=== PATIENT | female | born 1930 | race Caucasian/White ===

== ENCOUNTER 2018-05-31 13:41 | Inpatient (IN) ==
--- NOTE | 2018-05-31 13:59 | Emergency Department Note ---
Disposition Clinical Impression: Pleural effusion, Elevated troponin CHF exacerbation Qualifiers: Heart failure type: unspecified Qualified Code(s): I50.9 - Heart failure, unspecified Fall Qualifiers: Qualified Code(s): W19.XXXA - Unspecified fall, initial encounter Disposition: Admitted As Inpatient Condition: Fair Time of Disposition: 21:32 General Adult HPI - General Stated complaint: Fall sent for testing Time Seen by Provider: 05/31/18 13:44 Source: patient, family Mode of arrival: ambulatory Limitations: no limitations Nursing Notes Reviewed: Yes Vital Signs Reviewed: Yes - History of Present Illness HPI Narrative: 88-year-old female history of congestive heart failure, hypertension, hyperlipidemia and hypothyroidism presents to the emergency department with family for multiple complaints. Patient was seen by primary care provider Dr. Vicente originally for recent fall and cough. The patient's family is at bedside and assist with the history. States that the primary care provider was concerned that she may have pneumonia versus heart failure. Patient has gained over 28 pounds. Her legs are significantly more swollen and starting to ooze. They have also noticed that she appears more yellow. She has significant amount abdominal swelling. She is also developed a cough with a green productive sputum with some associated shortness of breath and chest pain on the left. This is been ongoing for the past week. She also had a fall yesterday coming out of the shower. This was witnessed by . She sits in the shower she finished showering caught up as she was stepping out her right leg slipped and she felt back. No head injury reported. No loss of consciousness. Patient had some difficulty with getting up. Since then she has been having difficulty ambulating. She is complaining of right hip pain but does know that she has chronic pain there. She denies any back pain or neck pain. She denies any confusion. Denies any changes in her appetite. - Related Data Home Medications Medication Instructions Recorded Confirmed Aspirin [Luce Aspirin EC] 81 mg PO Q48H 05/31/18 05/31/18 Carvedilol [Coreg] 6.25 mg PO DAILY 05/31/18 05/31/18 Chlorthalidone 50 mg PO DAILY 05/31/18 05/31/18 Guaifenesin [Mucinex] 600 mg PO DAILY 05/31/18 05/31/18 Levothyroxine Sodium 75 mcg PO QAM 05/31/18 05/31/18 Allergies Allergy/AdvReac Type Severity Reaction Status Date / Time codeine Allergy Headache Verified 05/31/18 14:07 Penicillins Allergy See Verified 05/31/18 14:08 Comments All systems ED: reviewed and negative except as stated. Review of Systems: As Per HPI Constitutional: Reports: weight change. Denies: fever, chills ENT ED: Reports: congestion Cardiovascular: Reports: chest pain Respiratory: Reports: cough, dyspnea. Denies: hemoptysis Gastrointestinal: Denies: abdominal pain, nausea, vomiting, diarrhea Genitourinary: Denies: dysuria Musculoskeletal: Reports: arthralgia. Denies: back pain Integumentary: Denies: rash, abrasion Neurological: Denies: headache Past Medical History - Past Medical History Attestation: Yes The following information was validated with the patient. Source: patient Physical Exam - General Limitations: no limitations General appearance: alert, in no apparent distress - Head Head exam: atraumatic, normocephalic, normal inspection - Eye Eye exam: Present: normal appearance, PERRL, EOMI. Absent: scleral icterus - ENT ENT exam: normal exam, normal oropharynx, mucous membranes moist - Neck Neck exam: Present: normal inspection, full ROM, trachea midline - Chest Chest inspection: Present: normal inspection, symmetric chest wall rise - Respiratory Respiratory exam: Present: normal lung sounds bilaterally, wheezes. Absent: respiratory distress - Expanded Respiratory Exam Location: wheezes: Lower, rales: Lower, decreased breath sounds: Lower - Cardiovascular Cardiovascular exam: Present: normal rhythm, tachycardia, normal heart sounds, other (Unable to palpate distal pulses in lower extremities given the significant swelling) - Abdominal Exam Abdominal exam: Present: soft (Obese), Non-Tender, ascites, other (Pitting edema). Absent: tenderness, distention, guarding, rebound, rigidity - Extremities Exam Extremities exam: Present: normal inspection, full ROM, pedal edema (Significant bilateral with oozing). Absent: tenderness, calf tenderness - Expanded Lower Extremity Exam Hip/Pelvis exam: Present: full ROM, tenderness (Right), pelvis stable Upper leg exam: Present: normal inspection, full ROM Knee exam: Present: normal inspection, full ROM Lower leg exam: Present: full ROM, swelling Ankle exam: Present: full ROM, swelling Foot/toe exam: Present: normal inspection, full ROM Neurovascular/Tendon exam: Absent: motor deficit, sensory deficit, tendon d eficit - Neurological Exam Neurological exam: Present: alert, oriented X3 - Psychiatric Psychiatric exam: Present: normal affect, normal mood - Skin Skin exam: Present: warm, dry, intact, other (Yellowish tinge to face and upper trunk). Absent: rash, cyanosis, diaphoresis Course Course Narrative: Patient presents with concern for pneumonia versus heart failure. Patient has significant swelling to lower extremity. She does not appear in any significant respiratory distress. She reports a cough for several days with left-sided chest pain along the rib. No trauma to the area. She did recently fall but denies any head injury. On evaluation patient appears in no acute distress. Patient appears mildly jaundice in the face. Her sclera is not icteric. She is awake alert and oriented to person place and time. She has some tenderness to the right hip. She states she is normally amatory but since the fall she has been weaker than usual. She had multiple episodes when she use a commode and was unable to stand and get up from it. She denies any back pain. She moves all for extremities without any difficulty. Logrolling does not elicit any significant discomfort. At this time will evaluate for possible heart failure including a BNP. Chest x-ray performed. Will also obtain a CT of the head given the fall. Patient is tachycardic Ed.D. dimer will be added. She is slightly hypotensive and will cautiously fluid hydration her given her fluid overload state. - Reevaluation(s) Reevaluation #1: D dimer is significantly elevated. A CT scan of the chest will be added. Her hip films show possible fracture to the right intertrochanteric area. Recommendation of a CT scan for further evaluation. Given the swelling to her abdomen will evaluate with CT abdomen and pelvis as well. Review of her labs is not show anemia. There is no significant leukocytosis. Her troponin is elevated 0.07. EKG did not reveal any ischemic findings. Her BNP is elevated and was suggest that she is more and heart failure. Her chest x-ray shows bilateral pleural effusion. She does not take diuretics at baseline. Her bilirubin is not significantly elevated to suggest acute liver failure at this time. Patient will require admission. Family is in agreement with this plan. Time: 17:03 Reevaluation #2: CT scan did not reveal fracture of the pelvis. Patient informed of additional findings which included a staghorn kidney stone that they have been aware of for the past several years. There is also no femoral fracture. There is liver cirrhosis that the patient was unaware of. There is also findings concerning for chronic pulmonary embolism with bilateral pleural effusion. She continues to be in no acute respiratory distress. Patient will be admitted for her heart failure given her weakness and fall. - Consultations Consultation #1: Spoke with on-call hospitalist ej Ness to admit for dyspnea, CHF exacerbation, elevated trop, pleural effusion, fall. No further orders at this time Time: 18:02 Vital Signs Temperature 98.5 F 05/31/18 13:59 Pulse Rate 121 05/31/18 13:59 Respiratory Rate 19 05/31/18 13:59 Blood Pressure 99/63 05/31/18 13:59 O2 Sat by Pulse Oximetry 95 05/31/18 13:59 Temperature 98.0 F 05/31/18 20:51 Pulse Rate 108 05/31/18 18:40 Respiratory Rate 111 05/31/18 20:51 Blood Pressure 93/58 05/31/18 20:51 O2 Sat by Pulse Oximetry 97 05/31/18 21:32 Oxygen Delivery Oxygen Delivery Room Air Medical Decision Making - MDM Narrative Medical decision making narrative: Patient was discussed with my attending physician who agrees with ED management and final disposition. They independently evaluated the patient. Please refer to their attestation to this encounter for additional information. This note was generated by [employer] voice recognition software and as a result g rammatical or spelling errors may occur using this program. - Medical Records Medical records reviewed: Yes I reviewed the patient's medical records. - Lab Data Lab results reviewed: Yes I reviewed the patient's lab results. Result diagrams: 05/31/18 14:05 05/31/18 14:05 Lab Results 05/31/18 05/31/18 05/31/18 Range/Units 14:05 14: 14:05 WBC 11.4 H (4.3-11.1) K/mcL RBC 4.06 (3.82-4.97) M/mcL Hgb 12.2 (11.5-15.4) g/dL Hct 37.2 (35.3-44.9) % MCV 91.6 (83.0-100.0) fL MCH 30.0 (28.0-33.3) pg MCHC 32.8 (31.6-35.5) g/dL RDW 14.1 (11.5-14.5) % Plt Count 282 (140-400) K/mcL MPV 8.6 L (9.4-12.4) fL Immature Gran % 0.8 (0-4) % Seg Neutrophils % 81.1 % Lymphocytes % 12.1 % Monocytes % 4.7 % Eosinophils % 1.1 % Basophils % 0.2 % Neutrophils # 9.2 H (1.6-8.9) K/mcL Lymphocytes # 1.4 (0.6-4.6) K/mcL Monocytes # 0.5 (0.0-1.3) K/mcL Eosinophils # 0.1 (0.0-0.6) K/mcL Basophils # 0.0 (0.0-0.2) K/mcL PT (9.4-12.1) Seconds INR D-Dimer (0-500) ng/mLFEU Heparin Anti-Xa, Unfract (0.30-0.70) IU/mL Sodium 134 L (136-145) mEq/L Potassium 4.1 (3.5-5.1) mEq/L Chloride 98 (98-107) mEq/L Carbon Dioxide 28 (23-29) mEq/L BUN 33 H (8-23) mg/dL Creatinine 1.13 (0.60-1.20) mg/dL Est GFR ( Amer) 55 L (> 60) Est GFR (Non-Af Amer) 46 L (> 60) BUN/Creatinine Ratio 29 H (6-26) Glucose 137 H (70-105) mg/dL Calculated Osmolality 287 (280-300) Lactic Acid (0.5-2.2) mmol/L Calcium 8.7 (8.6-10.3) mg/dL Total Bilirubin 0.7 (0.3-1.0) mg/dL Direct Bilirubin 0.3 H (0.0-0.2) mg/dL Indirect Bilirubin 0.4 (0.0-1.2) mg/dL AST 65 H (13-39) Units/L ALT 38 (7-52) Units/L Alkaline Phosphatase 103 (34-104) Units/L Troponin I 0.07 H* (< 0.04) ng/mL B-Natriuretic Peptide 442 H (Less than 100) pg/mL Serum Total Protein 5.7 L (6.4-8.9) g/dL Albumin 2.0 L (3.5-5.7) g/dL Globulin 3.7 H (2.4-3.5) g/dL Albumin/Globulin Ratio 0.5 L (1.1-2.2) Lipase 9 L (11-82) Units/L Urine Color (Yellow) Urine Clarity (Clear) Urine pH (5.0-8.0) pH Units Ur Specific [place] (1.010-1.025) Urine Protein (Neg-Trace) mg/dL Urine Glucose (UA) (Normal) mg/dL Urine Ketones (Negative) mg/dL Urine Blood (Negative) Urine Nitrite (Negative) Urine Bilirubin (Negative) Urine Urobilinogen (Normal) mg/dL Ur Leukocyte Esterase (Negative) Urine Microscopic RBC (0-3) per hpf Urine Microscopic WBC (0-3) per hpf Ur Squamous Epith Cells (None-Few) per lpf Urine Bacteria (None-Few) per hpf Hyaline Casts (None-Few) per lpf Ur Culture Indicated? (NO) 05/31/18 05/31/18 05/31/18 Range/Units 14:05 17:39 17:50 WBC (4.3-11.1) K/mcL RBC (3.82-4.97) M/mcL Hgb (11.5-15.4) g/dL Hct (35.3-44.9) % MCV (83.0-100.0) fL MCH (28.0-33.3) pg MCHC (31.6-35.5) g/dL RDW (11.5-14.5) % Plt Count (140-400) K/mcL MPV (9.4-12.4) fL Immature Gran % (0-4) % Seg Neutrophils % % Lymphocytes % % Monocytes % % Eosinophils % % Basophils % % Neutrophils # (1.6-8.9) K/mcL Lymphocytes # (0.6-4.6) K/mcL Monocytes # (0.0-1.3) K/mcL Eosinophils # (0.0-0.6) K/mcL Basophils # (0.0-0.2) K/mcL PT 15.3 H (9.4-12.1) Seconds INR 1.4 D-Dimer 3420 H (0-500) ng/mLFEU Heparin Anti-Xa, Unfract 0.00 L (0.30-0.70) IU/mL Sodium (136-145) mEq/L Potassium (3.5-5.1) mEq/L Chloride (98-107) mEq/L Carbon Dioxide (23-29) mEq/L BUN (8-23) mg/dL Creatinine (0.60-1.20) mg/dL Est GFR ( Amer) (> 60) Est GFR (Non-Af Amer) (> 60) BUN/Creatinine Ratio (6-26) Glucose (70-105) mg/dL Calculated Osmolality (280-300) Lactic Acid (0.5-2.2) mmol/L Calcium (8.6-10.3) mg/dL Total Bilirubin (0.3-1.0) mg/dL Direct Bilirubin (0.0-0.2) mg/dL Indirect Bilirubin (0.0-1.2) mg/dL AST (13-39) Units/L ALT (7-52) Units/L Alkaline Phosphatase (34-104) Units/L Troponin I (< 0.04) ng/mL B-Natriuretic Peptide (Less than 100) pg/mL Serum Total Protein (6.4-8.9) g/dL Albumin (3.5-5.7) g/dL Globulin (2.4-3.5) g/dL Albumin/Globulin Ratio (1.1-2.2) Lipase (11-82) Units/L Urine Color Yellow (Yellow) Urine Clarity Turbid A (Clear) Urine pH 6.0 (5.0-8.0) pH Units Ur Specific [place] 1.028 H (1.010-1.025) Urine Protein 100 H (Neg-Trace) mg/dL Urine Glucose (UA) Normal (Normal) mg/dL Urine Ketones Negative (Negative) mg/dL Urine Blood Large H (Negative) Urine Nitrite Positive A (Negative) Urine Bilirubin Negative (Negative) Urine Urobilinogen Normal (Normal) mg/dL Ur Leukocyte Esterase Large H (Negative) Urine Microscopic RBC 15-30 H (0-3) per hpf Urine Microscopic WBC TNTC H (0-3) per hpf Ur Squamous Epith Cells Many H (None-Few) per lpf Urine Bacteria Many H (None-Few) per hpf Hyaline Casts Moderate H (None-Few) per lpf Ur Culture Indicated? NO. A (NO) 05/31/18 Range/Units 17:50 WBC (4.3-11.1) K/mcL RBC (3.82-4.97) M/mcL Hgb (11.5-15.4) g/dL Hct (35.3-44.9) % MCV (83.0-100.0) fL MCH (28.0-33.3) pg MCHC (31.6-35.5) g/dL RDW (11.5-14.5) % Plt Count (140-400) K/mcL MPV (9.4-12.4) fL Immature Gran % (0-4) % Seg Neutrophils % % Lymphocytes % % Monocytes % % Eosinophils % % Basophils % % Neutrophils # (1.6-8.9) K/mcL Lymphocytes # (0.6-4.6) K/mcL Monocytes # (0.0-1.3) K/mcL Eosinophils # (0.0-0.6) K/mcL Basophils # (0.0-0.2) K/mcL PT (9.4-12.1) Seconds INR D-Dimer (0-500) ng/mLFEU Heparin Anti-Xa, Unfract (0.30-0.70) IU/mL Sodium (136-145) mEq/L Potassium (3.5-5.1) mEq/L Chloride (98-107) mEq/L Carbon Dioxide (23-29) mEq/L BUN (8-23) mg/dL Creatinine (0.60-1.20) mg/dL Est GFR ( Amer) (> 60) Est GFR (Non-Af Amer) (> 60) BUN/Creatinine Ratio (6-26) Glucose (70-105) mg/dL Calculated Osmolality (280-300) Lactic Acid 1.0 (0.5-2.2) mmol/L Calcium (8.6-10.3) mg/dL Total Bilirubin (0.3-1.0) mg/dL Direct Bilirubin (0.0-0.2) mg/dL Indirect Bilirubin (0.0-1.2) mg/dL AST (13-39) Units/L ALT (7-52) Units/L Alkaline Phosphatase (34-104) Units/L Troponin I (< 0.04) ng/mL B-Natriuretic Peptide (Less than 100) pg/mL Serum Total Protein (6.4-8.9) g/dL Albumin (3.5-5.7) g/dL Globulin (2.4-3.5) g/dL Albumin/Globulin Ratio (1.1-2.2) Lipase (11-82) Units/L Urine Color (Yellow) Urine Clarity (Clear) Urine pH (5.0-8.0) pH Units Ur Specific [place] (1.010-1.025) Urine Protein (Neg-Trace) mg/dL Urine Glucose (UA) (Normal) mg/dL Urine Ketones (Negative) mg/dL Urine Blood (Negative) Urine Nitrite (Negative) Urine Bilirubin (Negative) Urine Urobilinogen (Normal) mg/dL Ur Leukocyte Esterase (Negative) Urine Microscopic RBC (0-3) per hpf Urine Microscopic WBC (0-3) per hpf Ur Squamous Epith Cells (None-Few) per lpf Urine Bacteria (None-Few) per hpf Hyaline Casts (None-Few) per lpf Ur Culture Indicated? (NO) - Radiology Data Radiology results reviewed: Yes I reviewed the patient's radiology results. Chest X-Ray 05/31/18 13:53 IMPRESSION: Bilateral pleural effusions with bibasilar opacification. D/ / Adolph Wong MD / Adolph Wong MD Interpreting Provider: Adolph Wong MD Pelvis X-Ray 05/31/18 13:54 IMPRESSION: No displaced femoral fracture is identified, though questionable oblique lucency through the left greater trochanter. Cannot exclude an intertrochanteric fracture. Would recommend CT evaluation of the pelvis for further evaluation. 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 D/ / Wade Perry MD / Wade Perry MD Interpreting Provider: Wade Perry MD Head CT 05/31/18 14:06 IMPRESSION: 1. No acute intracranial abnormality. 2. Mild global parenchymal volume loss. 3. Scattered atherosclerosis. D/ / Adolph Wong MD / Adolph Wong MD Interpreting Provider: Adolph Wong MD Abdomen/Pelvis CT 05/31/18 15:32 IMPRESSION: No hip fracture identified. 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 Infiltrates and/or atelectasis within the right middle lobe with moderate right and mild left pleural effusion. Cholelithiasis and possible early changes of hepatic cirrhosis. Severe left renal cortical atrophy with moderate to severe hydronephrosis, likely due to a longstanding obstruction from a stone in the UPJ. Large stone also present within the contralateral kidney. Trace pelvic free fluid and severe generalized anasarca. Diverticulosis coli. 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 No acute pulmonary embolism is detected. Large right and moderate left pleural effusion with adjacent airspace disease, atelectasis versus edema versus pneumonia. D/ / Berto Daniel MD / Berto Daniel MD Interpreting Provider: Berto Daniel MD - EKG Data EKG #1 EKG attestation: Yes I reviewed and interpreted this EKG. EKG results narrative: EKG performed 1416 sinus tachycardia 120 beats per minute, poor R wave progression, Q waves in the inferior leads, no ST elevation or depression, findings are consistent with prior EKG performed 72,014 which shows Q waves in inferior leads and first-degree AV block. No acute ischemic changes. Attestation Statement - Attestation Attestation: I, Artemio Velasco DO, examined this patient [id number] and my medical decision-making was reviewed with Reynaldo Dennison DO , Resident Physician. I agree with the documented findings, disposition and treatment plan as described except to the extent set forth below. Please see my progress notes for details.
--- NOTE | 2018-05-31 14:12 | Emergency Department Note ---
Disposition Clinical Impression: CHF exacerbation, Pleural effusion, Elevated troponin, Fall Disposition: Admitted As Inpatient Condition: Fair Referrals: Alejo Hayes Jr, MD [Non-Partnered Physician] - Forms: ED Satisfaction Letter Time of Disposition: 17:35 General Adult HPI - General Chief complaint: ED Fall Stated complaint: Fall sent for testing Time Seen by Provider: 05/31/18 13:44 Source: patient, family Mode of arrival: ambulatory Limitations: no limitations - History of Present Illness Pain Scale: 0 - Related Data Allergies Allergy/AdvReac Type Severity Reaction Status Date / Time codeine Allergy Headache Verified 05/31/18 14:07 Penicillins Allergy See Verified 05/31/18 14:08 Comments Constitutional: Reports: weight change. Denies: fever, chills ENT ED: Reports: congestion Cardiovascular: Reports: chest pain Respiratory: Reports: cough, dyspnea. Denies: hemoptysis Gastrointestinal: Denies: abdominal pain, nausea, vomiting, diarrhea Genitourinary: Denies: dysuria Musculoskeletal: Reports: arthralgia. Denies: back pain Integumentary: Denies: rash, abrasion Neurological: Denies: headache Past Medical History - Past Medical History Medical history: Reports: CHF, diabetes, hyperlipidemia, kidney stones, myocard ial infarction, renal disease, thyroid disease - Social History Smoking Status: Never smoker Alcohol use: Reports: none Drug use: Reports: none Physical Exam - General Limitations: no limitations General appearance: alert Course Vital Signs Temperature 98.5 F 05/31/18 13:59 Pulse Rate 121 05/31/18 13:59 Respiratory Rate 19 05/31/18 13:59 Blood Pressure 99/63 05/31/18 13:59 O2 Sat by Pulse Oximetry 95 05/31/18 13:59 Temperature 98.5 F 05/31/18 13:59 Pulse Rate 102 05/31/18 17:20 Respiratory Rate 16 05/31/18 17:20 Blood Pressure 101/67 05/31/18 17:20 O2 Sat by Pulse Oximetry 98 05/31/18 17:20 Oxygen Delivery Oxygen Delivery Room Air Medical Decision Making - Lab Data Result diagrams: 05/31/18 14:05 05/31/18 14:05 Lab Results 05/31/18 05/31/18 05/31/18 Range/Units 14:05 14:05 14:05 WBC 11.4 H (4.3-11.1) K/mcL RBC 4.06 (3.82-4.97) M/mcL Hgb 12.2 (11.5-15.4) g/dL Hct 37.2 (35.3-44.9) % MCV 91.6 (83.0-100.0) fL MCH 30.0 (28.0-33.3) pg MCHC 32.8 (31.6-35.5) g/dL RDW 14.1 (11.5-14.5) % Plt Count 282 (140-400) K/mcL MPV 8.6 L (9.4-12.4) fL Immature Gran % 0.8 (0-4) % Seg Neutrophils % 81.1 % Lymphocytes % 12.1 % Monocytes % 4.7 % Eosinophils % 1.1 % Basophils % 0.2 % Neutrophils # 9.2 H (1.6-8.9) K/mcL Lymphocytes # 1.4 (0.6-4.6) K/mcL Monocytes # 0.5 (0.0-1.3) K/mcL Eosinophils # 0.1 (0.0-0.6) K/mcL Basophils # 0.0 (0.0-0.2) K/mcL D-Dimer (0-500) ng/mLFEU Sodium 134 L (136-145) mEq/L Potassium 4.1 (3.5-5.1) mEq/L Chloride 98 (98-107) mEq/L Carbon Dioxide 28 (23-29) mEq/L BUN 33 H (8-23) mg/dL Creatinine 1.13 (0.60-1.20) mg/dL Est GFR ( Amer) 55 L (> 60) Est GFR (Non-Af Amer) 46 L (> 60) BUN/Creatinine Ratio 29 H (6-26) Glucose 137 H (70-105) mg/dL Calculated Osmolality 287 (280-300) Calcium 8.7 (8.6-10.3) mg/dL Total Bilirubin 0.7 (0.3-1.0) mg/dL Direct Bilirubin 0.3 H (0.0-0.2) mg/dL Indirect Bilirubin 0.4 (0.0-1.2) mg/dL AST 65 H (13-39) Units/L ALT 38 (7-52) Units/L Alkaline Phosphatase 103 (34-104) Units/L Troponin I 0.07 H* (< 0.04) ng/mL B-Natriuretic Peptide 442 H (Less than 100) pg/mL Serum Total Protein 5.7 L (6.4-8.9) g/dL Albumin 2.0 L (3.5-5.7) g/dL Globulin 3.7 H (2.4-3.5) g/dL Albumin/Globulin Ratio 0.5 L (1.1-2.2) Lipase 9 L (11-82) Units/L 05/31/18 Range/Units 14:05 WBC (4.3-11.1) K/mcL RBC (3.82-4.97) M/mcL Hgb (11.5-15.4) g/dL Hct (35.3-44.9) % MCV (83.0-100.0) fL MCH (28.0-33.3) pg MCHC (31.6-35.5) g/dL RDW (11.5-14.5) % Plt Count (140-400) K/mcL MPV (9.4-12.4) fL Immature Gran % (0-4) % Seg Neutrophils % % Lymphocytes % % Monocytes % % Eosinophils % % Basophils % % Neutrophils # (1.6-8.9) K/mcL Lymphocytes # (0.6-4.6) K/mcL Monocytes # (0.0-1.3) K/mcL Eosinophils # (0.0-0.6) K/mcL Basophils # (0.0-0.2) K/mcL D-Dimer 3420 H (0-500) ng/mLFEU Sodium (136-145) mEq/L Potassium (3.5-5.1) mEq/L Chloride (98-107) mEq/L Carbon Dioxide (23-29) mEq/L BUN (8-23) mg/dL Creatinine (0.60-1.20) mg/dL Est GFR ( Amer) (> 60) Est GFR (Non-Af Amer) (> 60) BUN/Creatinine Ratio (6-26) Glucose (70-105) mg/dL Calculated Osmolality (280-300) Calcium (8.6-10.3) mg/dL Total Bilirubin (0.3-1.0) mg/dL Direct Bilirubin (0.0-0.2) mg/dL Indirect Bilirubin (0.0-1.2) mg/dL AST (13-39) Units/L ALT (7-52) Units/L Alkaline Phosphatase (34-104) Units/L Troponin I (< 0.04) ng/mL B-Natriuretic Peptide (Less than 100) pg/mL Serum Total Protein (6.4-8.9) g/dL Albumin (3.5-5.7) g/dL Globulin (2.4-3.5) g/dL Albumin/Globulin Ratio (1.1-2.2) Lipase (11-82) Units/L Attestation Statement - Attestation Attestation: I, Artemio Velasco DO, examined this patient [id number] and my medical decision-making was reviewed with Reynaldo Dennison DO , Resident Physician. I agree with the documented findings, disposition and treatment plan as described except to the extent set forth below. Please see my progress notes for details. 88-year-old female presents to the emergency room for evaluation of multiple complaints. Several days ago she slipped getting out of the bathtub and slid sideways hitting her hips and the right side of her chest wall on the tub. She did not hit her head and did not lose consciousness. Patient denies any other complaints. Currently she is denying chest pain, shortness of breath, nausea vomiting or diarrhea. Denies any headache or vision change. Patient was seen at her primary care provider's office today. Dr. hayes reviewed the patient's presentation and was concerned. He recommended the patient come to the emergency room for evaluation. There is concern for cardiac, pulmonary, infectious etiology is the source here today. On physical exam the patient is resting in the bed. She is alert. She shows no apparent signs of distress. She converses without any difficulty. Her head is atraumatic. Pupils are equal round and reactive. Extraocular muscles are intact. Oropharynx is patent. Trachea is midline. Lungs are clear to auscultation. Heart is regular. Abdomen is soft and nontender nondistended with no guarding no rigidity and no peritoneal symptoms. Patient does have significant swelling in the lower extremities from the knees down causing blistering to the skin. Her capillary refill is normal. Pulses are difficult to appreciate secondary to the swelling. Patient will have detailed workup completed here today including CT of the head, chest x-ray with rib films, pelvic films. Patient also CBC chemistry liver function testing lipase ordered. BMP and troponin along with EKG will also be collected. Disposition to be determined once the full workup and treatment course have been established. Patient otherwise does not show any visible signs of decompensation this point. Initial blood pressure was low. 1 L of fluid will be given for resuscitative measures. We will continue to monitor closely until symptomatic control is completed see detailed documentation of the physical exam, medical intervention, medical decision- making and disposition in the resident physician's note. No critical care applied to the patient's treatment course at this time 1728 Patient has right sided pleural effusion along with a left-sided small pleural effusion. Unknown whether these are secondary to the injury with the fall or chronic. There are no visible signs of rib fracture or injury at this time. Shortness of breath and generalized malaise appear to be stable as well as the patient is not exerting herself. She does have a newly elevated troponin as well as BNP in this could be secondary to cardiac stress pushing up against the large pleural effusions. All these things appeared to be chronic in nature. She also has a chronic pulmonary emboli the does not show any acute pathology. Blood thinners will not be started yet at this time considering the patient is at risk secondary to the fall. Continuation of his care will be completed in the inpatient setting. Aspirin has been given at this point. She is still denying chest pain or other symptoms. We will start her on Levaquin to cover for potential pneumonia. Blood cultures have been ordered. This decision was made in conjunction with the hospitalist Dr. Love reviewed the case with me at this point. CT abdomen shows liver cirrhosis but otherwise no other acute findings. She does have a chronic atrophic kidney secondary to an obstructing previous stone. Renal insufficiency appears to be at baseline. Disposition will be admission. We will continue to monitor here until treatment course has been completed. Patient does have multifactorial presentation of this time but the true etiology to the elevated troponin and BNP appear to be secondary to the pleural effusions.
[2018-05-31] MEDS ORDERED: 0.9 % Sodium Chloride 1,000 ML IVC ONE (14:20)
[2018-05-31 14:28] LABS: Basophils % 0.2 %; Eosinophils # 0.1 K/mcL (0.0-0.6); Eosinophils % 1.1 %; Hematocrit 37.2 % (35.3-44.9); Hemoglobin 12.2 g/dL (11.5-15.4); Immature Granulocytes % 0.8 % (0-4); Lymphocytes # 1.4 K/mcL (0.6-4.6); Lymphocytes % 12.1 %; Mean Corpuscular HGB Conc 32.8 g/dL (31.6-35.5); Mean Corpuscular Volume 91.6 fL (83.0-100.0); Mean Platelet Volume 8.6 fL (9.4-12.4); Monocytes # 0.5 K/mcL (0.0-1.3); Monocytes % 4.7 %; Neutrophils # 9.2 K/mcL (1.6-8.9); Platelet Count 282 K/mcL (140-400); Red Blood Count 4.06 M/mcL (3.82-4.97); Red Cell Distribution Width 14.1 % (11.5-14.5); Segmented Neutrophils % 81.1 %
[2018-05-31 14:47] LABS: Troponin I 0.07 ng/mL (< 0.04)
[2018-05-31 14:58] LABS: Albumin/Globulin Ratio 0.5 (1.1-2.2); Bilirubin,Direct 0.3 mg/dL (0.0-0.2); Bilirubin,Indirect 0.4 mg/dL (0.0-1.2); Bilirubin,Total 0.7 mg/dL (0.3-1.0); Calcium 8.7 mg/dL (8.6-10.3); Globulin 3.7 g/dL (2.4-3.5); Potassium 4.1 mEq/L (3.5-5.1); Total Protein 5.7 g/dL (6.4-8.9)
[2018-05-31] MEDS ORDERED: Aspirin 325 MG TABLET PO ONE (15:27)
[2018-05-31] MEDS ORDERED: Isovue-370 500 ML INFUS..BTL IV ONE (15:33)
[2018-05-31] MEDS ORDERED: Levofloxacin 750 MG/150 ML 750 MG/150 ML BAG IVPB ONE (17:26)
[2018-05-31] MEDS ORDERED: *HR* OxyCODONE Immed Rel 5 MG TABLET PO PRN (17:36)
[2018-05-31] MEDS ORDERED: traMADol 50 MG TABLET PO PRN (17:36)
[2018-05-31] MEDS ORDERED: Naloxone 0.4 MG/ML INJ IVP PRN (17:36)
[2018-05-31] MEDS ORDERED: Acetaminophen 325 MG TABLET PO PRN (17:36)
[2018-05-31] MEDS ORDERED: *HR* Heparin 5,000 UNIT/ML VIAL IVP PRN ×2 (17:44)
[2018-05-31] MEDS ORDERED: *HR* Heparin 5,000 UNIT/ML VIAL IVP ONE (17:44)
[2018-05-31 17:55] LABS: Bilirubin,Urine Negative (Negative); Blood,Urine Large (Negative); Clarity,Urine Turbid (Clear); Color,Urine Yellow (Yellow); Glucose,Urine (UA) Normal (Normal); Ketones,Urine Negative (Negative); Leukocyte Esterase,Urine Large (Negative); Nitrite,Urine Positive (Negative); Protein,Urine 100 mg/dL (Neg-Trace); Specific Gravity,Urine 1.028 (1.010-1.025); Urobilinogen,Urine Normal (Normal)
[2018-05-31 17:57] LABS: Bacteria,Urine Many per hpf (None-Few); Hyaline Casts,Urine Moderate per lpf (None-Few); RBC,Urine 15-30 per hpf (0-3); Squamous Epithelial Cell,Urine Many per lpf (None-Few); WBC,Urine TNTC per hpf (0-3)
[2018-05-31] MEDS ORDERED: *HR* Heparin 5,000 UNIT/ML VIAL SQ SCH (18:00)
[2018-05-31 18:14] LABS: INR 1.4; Prothrombin Time 15.3 Seconds (9.4-12.1)
--- NOTE | 2018-05-31 18:25 | Internal Med History&Physical ---
Date of Encounter: 05/31/18 Time of Encounter: 17:50 Internal Medicine - H&P: HPI Chief complaint: SOB, cough, fall Admitted From: Home History of present illness: Ms. Trotter is a 88 year old female with past medical history of CAD status post remote PCI, hyperlipidemia, CKD, hypothyroidism, presented to the ED with 2 week history of SOB and cough. Associated with greenish sputum production. Denies fever/chills. She was also noted to have 29lbs weight gain for the last several weeks and was placed on 2 different types of diuretics per her PCP without significant improvement. No chest pain, palpitaton, orthopnea, or PND. Denies any abdominal pain, N/V, change in bowel habits, or dysuria. No joint pain or rash. No personal history of EtOH or tobacco abuse. No family history of heart or liver disease. In the ED, she was afebrile, tachycardic, and low normal BP. Saturating well on room air. Workup showed leukocytosis of 11.6, RML opacity with moderate R and mild L pleural effusion, generalized anasarca, early cirrhotic changes, and chronically appearing PE in R LL pulmonary artery. Troponin also elevated at 0.07. EKG shows sinus tachycardia without concerning ST changes. PAtient was given bolus of IVF, loaded with aspirin, and levaquin then admitted for further management. Past Med Surg Social Fam HX - Past Medical History Medical history: CHF, diabetes, hyperlipidemia, kidney stones, myocardial infarction, renal disease, thyroid disease - Past Surgical History Additional surgical history: carpal tunnel - Social History Smoking Status: Never smoker Alcohol use: none Drug use: none - Additional Family History Additional family history: No family history of heart or liver disease Internal Medicine - H&P: Meds Allergy/AdvReac Type Severity Reaction Status Date / Time codeine Allergy Headache Verified 05/31/18 14:07 Penicillins Allergy See Verified 05/31/18 14:08 Comments All Systems PM: A 10-system review of systems was performed and is negative for pertinent findings except as documented above in the HPI. - Constitutional Vitals: Temp Pulse Resp BP Pulse Ox 98.5 F 102 16 101/67 98 05/31/18 13:59 05/31/18 17:20 05/31/18 17:20 05/31/18 17:20 05/31/18 17:20 Exam: General: Alert and oriented, not in acute distress. HEENT:EOM, pupils equal, round and reactive. Cardiovascular:Normal S1 & S2, No JVD. Borderline tachycardia with regular rhythm. 2+ pitting edema both LE Lungs: Diminished breath sound bilateral lung bases, no obvious rhonchi/wheezes/rales Abdomen:Distended but soft, obese abdomen. Non-tender, no rigidity/rebound/guarding Extremities:No deformity or joint effusion appreciated Neurological:Normal cognition and motor skills. Non-focal. No liver flap Skin:Normal color, no rash Pulses:Carotid and radial pulses normal +2. Rest of the physical exam is non contributory Internal Med - H&P Results - Labs CBC & Chem 7: 05/31/18 14:05 05/31/18 14:05 Labs: Short CBC 05/31/18 Range/Units 14:05 WBC 11.4 H (4.3-11.1) K/mcL Hgb 12.2 (11.5-15.4) g/dL Hct 37.2 (35.3-44.9) % Plt Count 282 (140-400) K/mcL Neutrophils # 9.2 H (1.6-8.9) K/mcL BMP 05/31/18 14:05 Sodium 134 L Potassium 4.1 Chloride 98 Carbon Dioxide 28 BUN 33 H Creatinine 1.13 Glucose 137 H Calcium 8.7 Cardiac Enzymes 05/31/18 Range/Units 14:05 Troponin I 0.07 H* (< 0.04) ng/mL Liver Function 05/31/18 Range/Units 14:05 Total Bilirubin 0.7 (0.3-1.0) mg/dL Direct Bilirubin 0.3 H (0.0-0.2) mg/dL AST 65 H (13-39) Units/L ALT 38 (7-52) Units/L Alkaline Phosphatase 103 (34-104) Units/L Albumin 2.0 L (3.5-5.7) g/dL Urine 05/31/18 Range/Units 17:39 Urine Color Yellow (Yellow) Urine Clarity Turbid A (Clear) Urine pH 6.0 (5.0-8.0) pH Units Ur Specific [place] 1.028 H (1.010-1.025) Urine Protein 100 H (Neg-Trace) mg/dL Urine Glucose (UA) Normal (Normal) mg/dL - Impressions ITS Impressions Chest X-Ray 05/31/18 13:53 IMPRESSION: Bilateral pleural effusions with bibasilar opacification. D/ / Adolph Wong MD / Adolph Wong MD Interpreting Provider: Adolph Wong MD Pelvis X-Ray 05/31/18 13:54 IMPRESSION: No displaced femoral fracture is identified, though questionable oblique lucency through the left greater trochanter. Cannot exclude an intertrochanteric fracture. Would recommend CT evaluation of the pelvis for further evaluation. 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 D/ / Wade Perry MD / Wade Perry MD Interpreting Provider: Wade Perry MD Head CT 05/31/18 14:06 IMPRESSION: 1. No acute intracranial abnormality. 2. Mild global parenchymal volume loss. 3. Scattered atherosclerosis. D/ / Adolph Wong MD / Adolph Wong MD Interpreting Provider: Adolph Wong MD Abdomen/Pelvis CT 05/31/18 15:32 IMPRESSION: No hip fracture identified. 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 Infiltrates and/or atelectasis within the right middle lobe with moderate right and mild left pleural effusion. Cholelithiasis and possible early changes of hepatic cirrhosis. Severe left renal cortical atrophy with moderate to severe hydronephrosis, likely due to a longstanding obstruction from a stone in the UPJ. Large stone also present within the contralateral kidney. Trace pelvic free fluid and severe generalized anasarca. Diverticulosis coli. 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 No acute pulmonary embolism is detected. Large right and moderate left pleural effusion with adjacent airspace disease, atelectasis versus edema versus pneumonia. D/ / Berto Daniel MD / Berto Daniel MD Interpreting Provider: Berto Daniel MD - Assessment and plan (1) Community acquired pneumonia Current Visit: Yes Status: Acute Assessment and plan: associated with R>L effusion, which is also attributed by cirrhosis vs. CHF started on levaquin, continue strep, legionella ag sputum culture if able follow up on blood cultures Qualifiers: Laterality: right Lung location: middle lobe of lung Qualified Code(s): J18.1 - Lobar pneumonia, unspecified organism (2) Cirrhosis Current Visit: Yes Status: Acute Assessment and plan: new finding, no significant history of EtOH abuse also noted to have what appears to be chronic PE in R LL to rule out portal vein thrombosis as an etiology US liver with doppler study PT/INR to calculate MELD score hep panel Qualifiers: Hepatic cirrhosis type: unspecified hepatic cirrhosis Ascites presence: with ascites Qualified Code(s): K74.60 - Unspecified cirrhosis of liver; R18.8 - Other ascites (3) Pulmonary embolism Current Visit: Yes Status: Chronic Assessment and plan: CTA showed plaque-like filling defect within the right lower lobe pulmonary art priya, 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 will start heparin gtt in view of the additional finding of NSTEMI check EChocardiogram to look for R heart strain Qualifiers: Pulmonary embolism type: unspecified Chronicity: chronic Acute cor p ulmonale presence: without acute cor pulmonale Qualified Code(s): I27.82 - Chronic pulmonary embolism (4) Elevated troponin Current Visit: Yes Status: Acute Assessment and plan: suspect type II event in the setting of pneumonia, PE but unable to excluded type I event, especially in the setting of cardiac history EKG did not show any concerning ST changes loaded with ASA in the ED resume home dose of ASA from tomorrow morning check A1c, lipid panel with AM lab echocardiogram trend troponin in conjunction with the finding of PE, will start heparin gtt at least for tonight (5) Pleural effusion Current Visit: Yes Status: Acute Assessment and plan: R>L, can be parapneumonic effusion from R ML pneumonia but also contributed by cirrhosis +/- decompensated heart failure patient was initially given fluid in the ED with improvement in her BP and HR will hold off on further IVF or lasix tonight and monitor if pt becomes more symptomatic, may require thoracentesis (6) Fall Current Visit: Yes Status: Acute Assessment and plan: multifactorial, likely due to the above diagnoses no evidence of fracture PT/OT Qualifiers: Qualified Code(s): W19.XXXA - Unspecified fall, initial encounter (7) DVT prophylaxis Current Visit: Yes Status: Acute Assessment and plan: heparin gtt - Time Spent With Patient Total time spent is greater than 50% in coordination of care (as documented) at patient's floor/unit and/or counseling patient: 40 mins
[2018-05-31] MEDS: Heparin 25,000 UNIT/500 ML D5W 25,000 UNIT/500 ML BAG IVC SCH (19:48)
[2018-05-31] MEDS ORDERED: Furosemide 40 MG/4 ML VIAL IVP ONE (23:47)
[2018-05-31] MEDS: Ipratropium/Albuterol Neb 3 ML IH SCH (23:51)
[2018-06-01] MEDS: Saliva Stimulant 100ml BOTTLE PO PRN ×3 (01:57→13:56)
[2018-06-01 02:45] LABS: Basophils % 0.2 %; Eosinophils # 0.2 K/mcL (0.0-0.6); Eosinophils % 1.4 %; Hematocrit 33.9 % (35.3-44.9); Hemoglobin 11.4 g/dL (11.5-15.4); Immature Granulocytes % 0.7 % (0-4); Lymphocytes # 1.4 K/mcL (0.6-4.6); Lymphocytes % 11.1 %; Mean Corpuscular HGB Conc 33.6 g/dL (31.6-35.5); Mean Corpuscular Hemoglobin 30.6 pg (28.0-33.3); Mean Corpuscular Volume 90.9 fL (83.0-100.0); Mean Platelet Volume 8.7 fL (9.4-12.4); Monocytes # 0.5 K/mcL (0.0-1.3); Monocytes % 4.1 %; Neutrophils # 10.2 K/mcL (1.6-8.9); Platelet Count 267 K/mcL (140-400); Red Blood Count 3.73 M/mcL (3.82-4.97); Red Cell Distribution Width 14.3 % (11.5-14.5); Segmented Neutrophils % 82.5 %
[2018-06-01 03:04] LABS: Chol/HDL Ratio 10.8 (0-4.9)
[2018-06-01 03:05] LABS: Alanine Aminotransferase 29 Units/L (7-52); Albumin 1.8 g/dL (3.5-5.7); Albumin/Globulin Ratio 0.5 (1.1-2.2); Alkaline Phosphatase 94 Units/L (34-104); Aspartate Amino Transferase 40 Units/L (13-39); BUN/Creatinine Ratio 30 (6-26); Bilirubin,Total 0.5 mg/dL (0.3-1.0); Blood Urea Nitrogen 30 mg/dL (8-23); Carbon Dioxide 28 mEq/L (23-29); Chloride 98 mEq/L (98-107); Globulin 3.5 g/dL (2.4-3.5); Glucose 125 mg/dL (70-105); Magnesium 1.9 mg/dL (1.6-2.6); Osmolality,Calculated 284 (280-300); Potassium 3.7 mEq/L (3.5-5.1); Sodium 133 mEq/L (136-145); Total Protein 5.3 g/dL (6.4-8.9); eGFR For Non-African Americans 53 (> 60)
[2018-06-01 03:12] LABS: Troponin I 0.1 ng/mL (< 0.04)
--- NOTE | 2018-06-01 03:21 | Event Note ---
Date of Encounter: 05/31/18 Time of Encounter: 22:13 Alerted by pts. nurse DAYA Taveras that patient had arrived to the floor and was currently on heparin drip for what was believed to be a chronic PE. Nurse reported patient had bilateral pleural effusions and did not know her home medications but would be able to be verified in the a.m. Nurse also reported patient had 3-4+ pitting edema in bilateral LEs with lungs having bilateral fine crackles. Productive cough present as well. Went to see patient who was resting in bed but mildly short of breath and coughing. I asked the patient if she had ever taken Lasix and she stated yes but she was not sure what dose she took at home. Reported that she has hx of CHF. Reviewed Echocardiogram of 11/08/16 showed LVEF of 55%, normal left ventricular size and systolic function, evidence of moderate diastolic dysfunction of the left ventricle, normal right ventricular size and function, no significant valvular dysfunction, and no pulmonary hypertension. Legs edematous and weeping on exam bilaterally w/3-4+ pitting edema. 40 mg IVP lasix ordered along w/1.5L daily fluid restriction, s trict I&O, and Mucinex for cough. DuoNebs also ordered which pt. stated helped her breathing. Respiratory infection panel ordered. Will monitor pts. renal function in f/u labs. Pt. to be monitored for signs of worsening SOB/dyspnea overnight.
[2018-06-01 03:51] LABS: Hepatitis A Antibody IgM Nonreactive (Nonreactive); Hepatitis B Core IgM Nonreactive (Nonreactive); Hepatitis C Virus Antibody Nonreactive (Nonreactive)
[2018-06-01] MEDS: Ipratropium/Albuterol Neb 3 ML IH SCH ×6 (03:58→23:33)
[2018-06-01 04:17] LABS: Hepatitis B Surface Antigen Nonreactive (Nonreactive)
[2018-06-01 05:47] LABS: Adenovirus Not Detected (Not Detect); Bordetella Pertussis Not Detected (Not Detect); Chlamydophila pneumoniae Not Detected (Not Detect); Coronavirus 229E Not Detected (Not Detect); Coronavirus HKU1 Not Detected (Not Detect); Coronavirus NL63 Not Detected (Not Detect); Coronavirus OC43 Not Detected (Not Detect); Human Metapneumovirus Not Detected (Not Detect); Human Rhinovirus/Enterovirus Not Detected (Not Detect); Influenza A Subtype 2009 H1 Not Detected (Not Detect); Influenza A Untypeable Not Detected (Not Detect); Influenza B Not Detected (Not Detect); Mycoplasma pneumoniae Not Detected (Not Detect); Parainfluenza Virus 1 Not Detected (Not Detect); Parainfluenza Virus 2 Not Detected (Not Detect); Parainfluenza Virus 3 Not Detected (Not Detect); Parainfluenza Virus 4 Not Detected (Not Detect); Respiratory Syncytial Virus Not Detected (Not Detect)
[2018-06-01] MEDS: Aspirin Enteric Coated 81 MG Tablet PO SCH (09:18)
[2018-06-01 11:16] LABS: Thyroid Stimulating Hormone 2.932 mcIU/mL (0.340-5.600)
--- NOTE | 2018-06-01 12:55 | Electrocardiograph Report ---
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
--- NOTE | 2018-06-01 13:02 | Internal Med Progress Note ---
Hospitalist Progress Note - Encounter Date of Encounter: 06/01/18 Time of Encounter: 11:30 - Subjective Interval History: Was given IV lasix 40mg overnight, patient is unsure whether she feels any different in terms of her breathing status. Duoneb has helped her cough out sputum for samples. No chest pain, worsening SOB or abdominal distension. Family members however states that her leg appears less edematous than yesterday. - Exam Vitals: Temp Pulse Resp BP Pulse Ox 98.0 F 118 15 91/62 98 06/01/18 12:16 06/01/18 12:16 06/01/18 12:16 06/01/18 12:16 06/01/18 12:16 Exam: General: Alert and oriented, not in acute distress. Cardiovascular:Normal S1 & S2, No JVD. Tachycardic with regular rhythm. Slightly improvved bilateral LE pitting edema Lungs: Diminished breath sound bilateral lung bases, no obvious rhonchi/wheezes/rales Abdomen:Distended but soft, obese abdomen. Non-tender, no rigidity/rebound/guarding Extremities:No deformity or joint effusion appreciated Neurological:Normal cognition and motor skills. Non-focal. No liver flap - Assessment and Plan (1) Sepsis Current Visit: Yes Status: Suspected Assessment and Plan: WBC 12.4 and tachycardic pulmonary source, associated with R>L effusion -> part of which is also at tributed by cirrhosis vs. CHF lactic acid normal, RIP -ve continue levaquin, renally dosed strep, legionella ag -ve follow up on sputum and blood cultures if she clinically detriorates, may need thoracentesis (2) Community acquired pneumonia Current Visit: Yes Status: Acute Assessment and Plan: as above (3) Cirrhosis Current Visit: Yes Status: Acute Assessment and Plan: new finding, no significant history of EtOH abuse also noted to have what appears to be chronic PE in R LL pulmonary artery hep panel -ve to rule out portal vein thrombosis as an etiology, US liver with doppler pending MELD 10, CTP B7 may required biopsy, pending her clinical course (4) Pulmonary embolism Current Visit: Yes Status: Chronic Assessment and Plan: CTA showed plaque-like filling defect within the right lower lobe pulmonary artery, 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 Echo did not show RV strain but did demonstrate mild RV hypokinesis in addition to mild pulmonary HTN with RVSP of 42 mmHg continue heparin gtt for now will consult vascular surgery for ?CTEPH (5) Pleural effusion Current Visit: Yes Status: Acute Assessment and Plan: R>L, can be parapneumonic effusion from R ML pneumonia but also contributed by cirrhosis +/- decompensated heart failure (although less likely given the echo finding as above and non-dilated IVC) was given IV lasix overnight without significant improvement in her breathing but it appears to have helped with LE edema if BP tolerates, will try another dose this afternoon if pt becomes more symptomatic, may require thoracentesis (6) Elevated troponin Current Visit: Yes Status: Acute Assessment and Plan: likely type II event in the setting of pneumonia, PE EKG did not show any concerning ST changes and troponin pattern is flat and adynamic Echo did not show any depressed LVEF or LV wall motion abnormalities on daily aspirin (7) Fall Current Visit: Yes Status: Acute Assessment and Plan: multifactorial, likely due to the above diagnoses no evidence of fracture PT/OT (8) DVT prophylaxis Current Visit: Yes Status: Acute Assessment and Plan: heparin gtt - Time Spent with Patient Total time spent is greater than 50% in coordination of care (as documented) at patient's floor/unit and/or counseling patient: 39 mins Plan of Care Discussed with: patient (Also discussed at length with multiple family members at bedside) Internal Medicine: Result - Labs CBC & Chem 7: 06/01/18 02:16 06/01/18 02:16 Labs: Short CBC 05/31/18 06/01/18 Range/Units 14:05 02:16 WBC 11.4 H 12.4 H (4.3-11.1) K/mcL Hgb 12.2 11.4 L (11.5-15.4) g/dL Hct 37.2 33.9 L (35.3-44.9) % Plt Count 282 267 (140-400) K/mcL Neutrophils # 9.2 H 10.2 H (1.6-8.9) K/mcL BMP 05/31/18 06/01/18 14:05 02:16 Sodium 134 L 133 L Potassium 4.1 3.7 Chloride 98 98 Carbon Dioxide 28 28 BUN 33 H 30 H Creatinine 1.13 0.99 Glucose 137 H 125 H Calcium 8.7 8.0 L Cardiac Enzymes 05/31/18 05/31/18 06/01/18 Range/Units 14:05 20:13 02:16 Troponin I 0.07 H* 0.07 H* 0.10 H* (< 0.04) ng/mL Liver Function 05/31/18 06/01/18 Range/Units 14:05 02:16 Total Bilirubin 0.7 0.5 (0.3-1.0) mg/dL Direct Bilirubin 0.3 H (0.0-0.2) mg/dL AST 65 H 40 H (13-39) Units/L ALT 38 29 (7-52) Units/L Alkaline Phosphatase 103 94 (34-104) Units/L Albumin 2.0 L 1.8 L (3.5-5.7) g/dL Urine 05/31/18 Range/Units 17:39 Urine Color Yellow (Yellow) Urine Clarity Turbid A (Clear) Urine pH 6.0 (5.0-8.0) pH Units Ur Specific [place] 1.028 H (1.010-1.025) Urine Protein 100 H (Neg-Trace) mg/dL Urine Glucose (UA) Normal (Normal) mg/dL - ABG Interpretation ABG results: PT/INR, D-dimer PT 15.3 Seconds (9.4-12.1) H 05/31/18 17:50 D-Dimer 3420 ng/mLFEU (0-500) H 05/31/18 14:05 - Impressions Impressions Chest X-Ray 05/31/18 13:53 IMPRESSION: Bilateral pleural effusions with bibasilar opacification. D/ / Adolph Wong MD / Adolph Wong MD Interpreting Provider: Adolph Wong MD Pelvis X-Ray 05/31/18 13:54 IMPRESSION: No displaced femoral fracture is identified, though questionable oblique lucency through the left greater trochanter. Cannot exclude an intertrochanteric fracture. Would recommend CT evaluation of the pelvis for further evaluation. 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 D/ / Wade Perry MD / Wade Perry MD Interpreting Provider: Wade Perry MD Head CT 05/31/18 14:06 IMPRESSION: 1. No acute intracranial abnormality. 2. Mild global parenchymal volume loss. 3. Scattered atherosclerosis. D/ / Adolph Wong MD / Adolph Wong MD Interpreting Provider: Adolph Wong MD Abdomen/Pelvis CT 05/31/18 15:32 IMPRESSION: No hip fracture identified. 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 Infiltrates and/or atelectasis within the right middle lobe with moderate right and mild left pleural effusion. Cholelithiasis and possible early changes of hepatic cirrhosis. Severe left renal cortical atrophy with moderate to severe hydronephrosis, likely due to a longstanding obstruction from a stone in the UPJ. Large stone also present within the contralateral kidney. Trace pelvic free fluid and severe generalized anasarca. Diverticulosis coli. 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 No acute pulmonary embolism is detected. Large right and moderate left pleural effusion with adjacent airspace disease, atelectasis versus edema versus pneumonia. D/ / Berto Daniel MD / Berto Daniel MD Interpreting Provider: Berto Daniel MD Echocardiogram 06/01/18 07:00 Impressions: LVEF 60%. Normal LV chamber size and systolic function. Mild concentric left ventricular hypertrophy. Indeterminate diastolic function. Mild right ventricular hypokinesis. Mildly dilated left atrium. Mild tricuspid regurgitation. Mild pulmonary hypertension. Left Ventricular Wall Motion: Rest Echo Findings All wall segments showed normal motion. Findings: Study Quality * Technically sub-optimal due to clinical status. ECG Findings * Atrial fibrillation,rvr. Left Ventricle * LVEF 60%. * Normal LV chamber size and systolic function. * Mild concentric left ventricular hypertrophy. * Indeterminate diastolic function. * Definity echo contrast was not used. Right Ventricle * Normal right ventriculr size. * Mild right ventricular hypokinesis. Left Atrium * Mildly dilated left atrium. Right Atrium * Normal right atrial size. Interatrial Septum * Interatrial septum not well evaluated. * No evidence of PFO by color Doppler. Aortic Valve * Trileaflet aortic valve. * Mildly calcified aortic valve leaflets. * No aortic stenosis. * No aortic regurgitation. Mitral Valve * Normal mitral valve structure and function. * No mitral stenosis. * Trace mitral regurgitation. Tricuspid Valve * Normal tricuspid valve structure. * No tricuspid stenosis. * Mild tricuspid regurgitation. * Estimated RVSP is 42 mmHg. * Estimated RA pressure is 8 mmHg. * Mild pulmonary hypertension. Pulmonic Valve * Pulmonic valve is not well visualized. * No pulmonic stenosis. * No pulmonic regurgitation. Aorta * Normally sized aortic root. Pericardium * The pericardium appears normal. IVC * The IVC is not dilated. * < 50% respiratory change. Consult Discharge Plan - Plan Referrals: Alejo Hayes Jr, MD [Primary Care Provider] - 06/11/18 11:00 am (Please follow up as schedule...) (1) Sepsis Qualifiers: Sepsis type: sepsis due to unspecified organism Qualified Code(s): A41.9 - Sepsis, unspecified organism (2) Community acquired pneumonia Qualifiers: Laterality: right Lung location: middle lobe of lung Qualified Code(s): J18.1 - Lobar pneumonia, unspecified organism (3) Cirrhosis Qualifiers: Hepatic cirrhosis type: unspecified hepatic cirrhosis Ascites presence: with ascites Qualified Code(s): K74.60 - Unspecified cirrhosis of liver; R18.8 - Other ascites (4) Pulmonary embolism Qualifiers: Pulmonary embolism type: unspecified Chronicity: chronic Acute cor pulmonale presence: without acute cor pulmonale Qualified Code(s): I27.82 - Chronic pulmonary embolism (7) Fall Qualifiers: Qualified Code(s): W19.XXXA - Unspecified fall, initial encounter
[2018-06-01] MEDS: Heparin 25,000 UNIT/500 ML D5W 25,000 UNIT/500 ML BAG IVC SCH (13:56)
[2018-06-01 14:10] LABS: Estimated Average Glucose 128 mg/dl; Hemoglobin A1C 6.1 %
[2018-06-01] MEDS: Nystatin POWDER 30 GM BOTTLE TP SCH ×2 (14:34→20:22)
[2018-06-01] MEDS: Levofloxacin 750 MG/150 ML 750 MG/150 ML BAG IVPB SCH (17:49)
[2018-06-01] MEDS ORDERED: Furosemide 40 MG/4 ML VIAL IVP ONE (18:00)
[2018-06-01] MEDS ORDERED: Furosemide 20 MG/2 ML VIAL IVP ONE (18:00)
[2018-06-01] MEDS ORDERED: *HR* Metoprolol 5 MG/5 ML VIAL IVP ONE (23:31)
[2018-06-02] MEDS: Ipratropium/Albuterol Neb 3 ML IH SCH ×5 (03:17→20:20)
--- NOTE | 2018-06-02 04:07 | Event Note ---
Date of Encounter: 06/01/18 Time of Encounter: 20:44 Alerted by pts. nurse DAYA Higgins that the pt. was populating as a sepsis risk d/t HR of 123 and WBC of 12.4. WBC did increase from 11.4 on 05/31 to 12.4 on 06/01. Lactic acid ordered and nurse instructed to continue to monitor pt. closely and notify me of any changes. Patient currently receiving Levaquin IVPB for CAP.
[2018-06-02 05:23] LABS: Basophils % 0.3 %; Eosinophils # 0.3 K/mcL (0.0-0.6); Hematocrit 36.4 % (35.3-44.9); Hemoglobin 12.3 g/dL (11.5-15.4); Immature Granulocytes % 1.1 % (0-4); Lymphocytes # 1.6 K/mcL (0.6-4.6); Lymphocytes % 14.6 %; Mean Corpuscular HGB Conc 33.8 g/dL (31.6-35.5); Mean Corpuscular Hemoglobin 30.4 pg (28.0-33.3); Mean Corpuscular Volume 90.1 fL (83.0-100.0); Mean Platelet Volume 8.8 fL (9.4-12.4); Monocytes # 0.5 K/mcL (0.0-1.3); Monocytes % 4.7 %; Neutrophils # 8.6 K/mcL (1.6-8.9); Platelet Count 287 K/mcL (140-400); Red Blood Count 4.04 M/mcL (3.82-4.97); Red Cell Distribution Width 14.3 % (11.5-14.5); Segmented Neutrophils % 76.3 %
[2018-06-02 05:43] LABS: BUN/Creatinine Ratio 25 (6-26); Blood Urea Nitrogen 25 mg/dL (8-23); Calcium 8.1 mg/dL (8.6-10.3); Carbon Dioxide 25 mEq/L (23-29); Chloride 101 mEq/L (98-107); Glucose 107 mg/dL (70-105); Magnesium 1.8 mg/dL (1.6-2.6); Osmolality,Calculated 287 (280-300); Potassium 3.6 mEq/L (3.5-5.1); Sodium 136 mEq/L (136-145); eGFR For Non-African Americans 52 (> 60)
[2018-06-02] MEDS ORDERED: *HR* Metoprolol 5 MG/5 ML VIAL IVP PRN (07:36)
[2018-06-02] MEDS: Aspirin Enteric Coated 81 MG Tablet PO SCH (08:56)
[2018-06-02] MEDS: Heparin 25,000 UNIT/500 ML D5W 25,000 UNIT/500 ML BAG IVC SCH (08:56)
[2018-06-02] MEDS ORDERED: Furosemide 20 MG TABLET PO ONE (09:37)
[2018-06-02] MEDS: Nystatin POWDER 30 GM BOTTLE TP SCH ×2 (10:18→21:12)
--- NOTE | 2018-06-02 12:13 | Internal Med Progress Note ---
Hospitalist Progress Note - Encounter Date of Encounter: 06/02/18 Time of Encounter: 09:30 - Subjective Interval History: No significant change in her SOB or LE swelling but her sputum is becoming less in amount and more clear. No fever/chills, chest pain, palpitation, or abdominal distension - Exam Vitals: Temp Pulse Resp BP Pulse Ox 97.6 F 127 16 88/55 95 06/02/18 10:59 06/02/18 10:59 06/02/18 11:31 06/02/18 10:59 06/02/18 11:31 Exam: General: Alert and oriented, not in acute distress. Cardiovascular:Normal S1 & S2, No JVD. Tachycardic with regular rhythm. Unchanged pitting bilateral LE pitting edema Lungs: Diminished breath sound bilateral lung bases, no obvious rhonchi/wheezes/rales Abdomen:Distended but soft, obese abdomen. Non-tender, no r igidity/rebound/guarding Extremities:No deformity or joint effusion appreciated Neurological:Normal cognition and motor skills. Non-focal. No liver flap - Assessment and Plan (1) Sepsis Current Visit: Yes Status: Suspected Assessment and Plan: WBC 12.4 and tachycardic pulmonary source, associated with R>L effusion -> part of which is also attributed by cirrhosis vs. CHF lactic acid normal, RIP -ve continue levaquin D3 with slightly improving WBC strep, legionella ag -ve sputum culture showed many epithelial cells, repeat (2) Community acquired pneumonia Current Visit: Yes Status: Acute Assessment and Plan: as above (3) Cirrhosis Current Visit: Yes Status: Acute Assessment and Plan: new finding, no significant history of EtOH abuse, hep panel -ve no evidence of portal vein thrombosis MELD 10, CTP B7 suspect hypoalbuminemia to be the cause of bilateral pleural effusion and an asarca but unable to use lasix liberally due to borderline BP low dose of PO lasix today and reassess offered RHC to determine the fluid status, declined may attempt albumin + lasix if no significant improvement is noted nutrition consult for hypoalbuminemia (4) Pulmonary hypertension Current Visit: Yes Status: Acute Assessment and Plan: new findings since 10/2016, RVSP 42mm Hg possibilities include CTEPH given the CTA findings, MIKEY, or portopulmonary hypertension as well discussed with family, declined RHC for now but they would like to follow up as outpatient with pulmonary (5) Pulmonary embolism Current Visit: Yes Status: Chronic Assessment and Plan: CTA showed plaque-like filling defect within the right lower lobe pulmonary artery, 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 Echo did not show RV strain but did demonstrate mild RV hypokinesis in addition to mild pulmonary HTN with RVSP of 42 mmHg discussed risks, benefits, alternatives to anticoagulation extensively with the patient and her family members, opted for AC Given her age, CKD, and liver disease predisposing her to bleeding, will try apixaban 2.5mg BID (6) Pleural effusion Current Visit: Yes Status: Acute Assessment and Plan: R>L, can be parapneumonic effusion from R ML pneumonia but also contributed by cirrhosis +/- decompensated heart failure (although less likely given the echo finding as above and non-dilated IVC) discussed with pulm briefly; as she is not hypoxic nor symptomatic, it would be reasonable to try diuresis and monitor without thoracentesis for now. PO lasix 20mg QD, may try albumin + lasix (7) Elevated troponin Current Visit: Yes Status: Acute Assessment and Plan: likely type II event in the setting of pneumonia, PE EKG did not show any concerning ST changes and troponin pattern is flat and adynamic Echo did not show any depressed LVEF or LV wall motion abnormalities on daily aspirin (8) Fall Current Visit: Yes Status: Acute Assessment and Plan: multifactorial, likely due to the above diagnoses no evidence of fracture PT/OT (9) DVT prophylaxis Current Visit: Yes Status: Acute Assessment and Plan: switching to eliquis - Time Spent with Patient Total time spent is greater than 50% in coordination of care (as documented) at patient's floor/unit and/or counseling patient: 39 mins Plan of Care Discussed with: patient (discussed at length with the family member. Also spoke to pulmonary.) Internal Medicine: Result - Labs CBC & Chem 7: 06/02/18 04:45 06/02/18 04:45 Labs: Short CBC 06/02/18 Range/Units 04:45 WBC 11.2 H (4.3-11.1) K/mcL Hgb 12.3 (11.5-15.4) g/dL Hct 36.4 (35.3-44.9) % Plt Count 287 (140-400) K/mcL Neutrophils # 8.6 (1.6-8.9) K/mcL BMP 06/02/18 04:45 Sodium 136 Potassium 3.6 Chloride 101 Carbon Dioxide 25 BUN 25 H Creatinine 1.01 Glucose 107 H Calcium 8.1 L - ABG Interpretation ABG results: PT/INR, D-dimer PT 15.3 Seconds (9.4-12.1) H 05/31/18 17:50 D-Dimer 3420 ng/mLFEU (0-500) H 05/31/18 14:05 - Impressions Impressions Liver Ultrasound 06/01/18 16:00 IMPRESSION: Cirrhotic liver morphology with reduced/slow flow within the main portal vein. Contrast opacifies the portal vein on comparison CT abdomen pelvis from 05/31/2018 suggesting patency. Cholelithiasis with features equivocal for cholecystitis given mild wall thickening but negative sonographic Tabares's sign. Trace abdominal ascites. D/ / Gavino Person / Gavino Person Interpreting Provider: Gavino Person Consult Discharge Plan - Plan Referrals: Alejo Hayes Jr, MD [Primary Care Provider] - 06/11/18 11:00 am (Please follow up as schedule...) (1) Sepsis Qualifiers: Sepsis type: sepsis due to unspecified organism Qualified Code(s): A41.9 - Sepsis, unspecified organism (2) Community acquired pneumonia Qualifiers: Laterality: right Lung location: middle lobe of lung Qualified Code(s): J18.1 - Lobar pneumonia, unspecified organism (3) Cirrhosis Qualifiers: Hepatic cirrhosis type: unspecified hepatic cirrhosis Ascites presence: with ascites Qualified Code(s): K74.60 - Unspecified cirrhosis of liver; R18.8 - Other ascites (5) Pulmonary embolism Qualifiers: Pulmonary embolism type: unspecified Chronicity: chronic Acute cor pulmonale presence: without acute cor pulmonale Qualified Code(s): I27.82 - Chronic pulmonary embolism (8) Fall Qualifiers: Qualified Code(s): W19.XXXA - Unspecified fall, initial encounter
[2018-06-02] MEDS: Apixaban 5 MG TABLET PO SCH ×2 (16:10→21:09)
[2018-06-02] MEDS ORDERED: *HR* Metoprolol 5 MG/5 ML VIAL IVP ONE (17:54)
[2018-06-02] MEDS ORDERED: Levofloxacin 750 MG/150 ML 750 MG/150 ML BAG IVPB SCH (18:00)
[2018-06-03] MEDS: Ipratropium/Albuterol Neb 3 ML IH SCH ×4 (00:19→11:22)
[2018-06-03 06:33] LABS: Basophils % 0.3 %; Eosinophils # 0.1 K/mcL (0.0-0.6); Eosinophils % 1.8 %; Hematocrit 35.1 % (35.3-44.9); Hemoglobin 11.9 g/dL (11.5-15.4); Immature Granulocytes % 0.9 % (0-4); Lymphocytes # 1.4 K/mcL (0.6-4.6); Lymphocytes % 17.8 %; Mean Corpuscular HGB Conc 33.9 g/dL (31.6-35.5); Mean Corpuscular Hemoglobin 30.2 pg (28.0-33.3); Mean Corpuscular Volume 89.1 fL (83.0-100.0); Mean Platelet Volume 8.4 fL (9.4-12.4); Monocytes # 0.3 K/mcL (0.0-1.3); Monocytes % 4.3 %; Neutrophils # 5.9 K/mcL (1.6-8.9); Platelet Count 275 K/mcL (140-400); Red Blood Count 3.94 M/mcL (3.82-4.97); Red Cell Distribution Width 14.3 % (11.5-14.5); Segmented Neutrophils % 74.9 %
[2018-06-03 06:52] LABS: BUN/Creatinine Ratio 24 (6-26); Blood Urea Nitrogen 25 mg/dL (8-23); Carbon Dioxide 25 mEq/L (23-29); Chloride 96 mEq/L (98-107); Glucose 132 mg/dL (70-105); Magnesium 1.8 mg/dL (1.6-2.6); Osmolality,Calculated 276 (280-300); Potassium 3.5 mEq/L (3.5-5.1); Sodium 130 mEq/L (136-145); eGFR For Non-African Americans 50 (> 60)
[2018-06-03] MEDS: Apixaban 5 MG TABLET PO SCH (10:44)
[2018-06-03] MEDS: Aspirin Enteric Coated 81 MG Tablet PO SCH (10:46)
--- NOTE | 2018-06-03 11:16 | Discharge Summary ---
- NOTES TO OUTPATIENT PROVIDER Notes to Outpatient Provider: Patient was admitted for pneumonia but was also diagnosed with new cirrhosis, chronic PE of the right lower lobe pulmonary artery, and mild pulmonary HTN. Offered right heart catherization and possible liver biopsy for further workup but family was leaning toward watchful waiting and both hepatology/pulmonology follow up before deciding on what to do. WBC improved with levaquin and will be discharged on 10 day course (Renally adjusted). For chronic PE, she was initially on heparin gtt followed by apixaban 2.5mg BID -> was keen to start on anticoagulation in view of impaired RV function and pulmonary hypertension after discussing on risk/benefits/alternatives. ASA was d/junior instead. Her coreg was switched to metoprolol due to borderline blood pressure and can be titrated up to keep HR < 110. She will also be discharged on low dose of lasix 20mg. Repeat BMP early n ext week and follow up with PCP. Home health options were provided for the patient and they will follow up as outpatient to set up. Orders not resulted at time of discharge: Pending orders 05/31/18 17:50 Culture,Blood [BC] Stat 06/01/18 20:14 Culture,Sputum with Gram Stain [RM] Routine Date of Encounter: 06/03/18 Time of Encounter: 08:00 - Discharge Diagnosis (1) Sepsis Priority: Primary Status: Suspected Qualifiers: Sepsis type: sepsis due to unspecified organism Qualified Code(s): A41.9 - Sepsis, unspecified organism (2) Community acquired pneumonia Priority: Secondary Status: Acute Qualifiers: Laterality: right Lung location: middle lobe of lung Qualified Code(s): J18.1 - Lobar pneumonia, unspecified organism (3) Cirrhosis Priority: Secondary Status: Acute Qualifiers: Hepatic cirrhosis type: unspecified hepatic cirrhosis Ascites presence: with ascites Qualified Code(s): K74.60 - Unspecified cirrhosis of liver; R18.8 - Other ascites (4) Pulmonary hypertension Priority: Secondary Status: Acute (5) Pulmonary embolism Priority: Secondary Status: Chronic Qualifiers: Pulmonary embolism type: unspecified Chronicity: chronic Acute cor pulmonale presence: without acute cor pulmonale Qualified Code(s): I27.82 - Chronic pulmonary embolism (6) Pleural effusion Priority: Secondary Status: Acute (7) Elevated troponin Priority: Secondary Status: Acute (8) Fall Priority: Secondary Status: Acute Qualifiers: Qualified Code(s): W19.XXXA - Unspecified fall, initial encounter (9) DVT prophylaxis Priority: Secondary Status: Acute Hospital course: Ms. Trotter is a 88 year old female with PMHx of CAD s/p PCI, CKD, presented with fall. She was admitted and treated for pneumonia but was also diagnosed with new cirrhosis, bilateral pleural effusion, chronic PE of the right lower lobe pulmonary artery, and mild pulmonary HTN. Initialy workup was negative for portal vein thrombosis or viral hepatitis. Suspect MARTÍNEZ as an etiology and hypoalbuminemia to be the cause of bilateral plerual effusion as well as anasarca. Offered right heart catherization and possible liver biopsy for further workup but patient and family were leaning toward watchful waiting. If they decided to do more, they will follow up with both hepatology/pulmonology and the contact information was provided. WBC improved with levaquin from PNA standpoint and will be discharged on 10 day course (Renally adjusted). For chronic PE, she was initially on heparin gtt and was transitioned to apixaban 2.5mg BID -> was keen to start on anticoagulation in view of impaired RV function and pulmonary hypertension after discussing on risk/benefits/alternatives. ASA was d/junior instead. Her coreg was switched to metoprolol due to borderline blood pressure and can be titrated up to keep HR < 110. She will also be discharged on low dose of lasix 20mg. Repeat BMP early next week and follow up with PCP. Home health options were provided for the patient and they will follow up as outpatient to set up. Discharge discussed with: patient, family, social work, case management - Time Spent with Patient Total time spent providing and/or coordinating discharge services: 45 mins - Discharge Medications Prescriptions: Albuterol Sulfate [Albuterol Inhaler] 1 puff IH Q4HR PRN #1 [email or web address] PRN Reason: Shortness Of Breath Apixaban [Eliquis] 2.5 mg PO BID #30 tablet Furosemide [Lasix] 20 mg PO DAILY #30 tablet levoFLOXacin [Levaquin] 750 mg PO Q48H #4 tablet Metoprolol [Lopressor] 12.5 mg PO BID #30 tablet Home Medications: Guaifenesin [Mucinex] 600 mg PO DAILY 05/31/18 [History] Levothyroxine Sodium 75 mcg PO QAM 05/31/18 [History] Albuterol Sulfate [Albuterol Inhaler] 1 puff IH Q4HR PRN #1 [id number] 06/03/18 [Rx] Apixaban [Eliquis] 2.5 mg PO BID #30 tablet 06/03/18 [Rx] Furosemide [Lasix] 20 mg PO DAILY #30 tablet 06/03/18 [Rx] Metoprolol [Lopressor] 12.5 mg PO BID #30 tablet 06/03/18 [Rx] levoFLOXacin [Levaquin] 750 mg PO Q48H #4 tablet 06/03/18 [Rx] Allergies/Adverse Reactions: Allergy/AdvReac Type Severity Reaction Status Date / Time codeine Allergy Headache Verified 05/31/18 14:07 Penicillins Allergy See Verified 05/31/18 14:08 Comments Date of admission: 05/31/18 19:28 Primary care physician: Alejo Hayes Jr, MD Consults: 05/31/18 17:40 Consult to Occupational Therapy [CONS] Routine Comment: Evaluate, develop and implement POC Reason for Consult: frequent fall Does patient have active BEDREST order?: No Is patient medically & hemodynamically stable?: Yes Consult to Physical Therapy [CONS] Routine Comment: Evaluate, develop and implement POC Reason for Consult: frequent fall Does patient have active BEDREST order?: No Is patient medically & hemodynamically stable?: Yes 06/02/18 09:36 Consult to Speech Therapy [CONS] Routine Comment: Evaluate, develop and implement POC Reason for Consult: dysphagia Call Completed: No 06/02/18 12:26 Consult to Nutrition [CONS] Routine Comment: Consulting Provider: NUTRITION Reason for Dietary Consult: PO Supplementation Diet Education - Constitutional Vitals: Temp Pulse Resp BP Pulse Ox 97.7 F 124 16 98/68 91 06/03/18 08:08 06/03/18 08:08 06/03/18 10:52 06/03/18 10:52 06/03/18 10:52 Exam: General: Alert and oriented, not in acute distress. Cardiovascular:Normal S1 & S2, No JVD. Tachycardic with regular rhythm. Unchanged pitting bilateral LE pitting edema Lungs: Improved aeration in bilateral lung bases, no obvious rhonchi/wheezes/rales Abdomen:Distended but soft, obese abdomen. Non-tender, no rigidity/rebound/guarding Extremities:No deformity or joint effusion appreciated Neurological:Normal cognition and motor skills. Non-focal. No liver flap - Patient Status Disposition: Home, Self-Care Condition: Fair Overall status at discharge: patient is progressing back to baseline - Discharge Instructions Instructions: Pneumonia (DC), Heart Failure (DC), Fall Prevention (DC), Pulmonary Embolism (DC), Cirrhosis (DC) Follow Up With: Alejo Hayes Jr, MD [Primary Care Provider] - 06/11/18 11:00 am (Please follow up as schedule...) Luis A Spencer MD [Partnered Physician] - Maame Beyer MD [Partnered Physician] - Additional Instructions: Complete abx as prescribed for pneumonia Switched to metoprolol for HTN, titrate up as needed Apixaban 2.5mg BID for PE. Stop if any signs of zaki bleeding and return to the ED Lasix 20mg QD and BMP in 3 days. Follow up with PCP Follow up with hepatology and pulmonology for further workup of cirrhosis and pulmonary hypertension Set up home health with PCP as an outpatient - Diet and Activity Activity: ambulate only with your walker Diet: low salt diet
--- NOTE | 2018-06-03 11:33 | Physician Discharge Referral ---
Home Health/Hosp Referral Info Transfer to: Home Health - Diagnosis (1) Sepsis Priority: Primary Status: Suspected (2) Community acquired pneumonia Priority: Secondary Status: Acute (3) Cirrhosis Priority: Secondary Status: Acute (4) Pulmonary hypertension Priority: Secondary Status: Acute (5) Pulmonary embolism Priority: Secondary Status: Chronic (6) Pleural effusion Priority: Secondary Status: Acute (7) Elevated troponin Priority: Secondary Status: Acute (8) Fall Priority: Secondary Status: Acute (9) DVT prophylaxis Priority: Secondary Status: Acute - Respiratory Orders Smoking Cessation: Smoking cessation has been advised. For more information, call the [place] Tobacco Quit Line at 3-599-MJXP-NOW. - Services Needed Following services are medically necessary services: Nursing, Home Health Aide, Physical Therapy, Occupational Therapy - Transfer Medications Prescriptions: Albuterol Sulfate [Albuterol Inhaler] 1 puff IH Q4HR PRN #1 hfa.aer.ad PRN Reason: Shortness Of Breath Apixaban [Eliquis] 2.5 mg PO BID #30 tablet Furosemide [Lasix] 20 mg PO DAILY #30 tablet levoFLOXacin [Levaquin] 750 mg PO Q48H #4 tablet Metoprolol [Lopressor] 12.5 mg PO BID #30 tablet Home Medications: Guaifenesin [Mucinex] 600 mg PO DAILY 05/31/18 [History] Levothyroxine Sodium 75 mcg PO QAM 05/31/18 [History] Albuterol Sulfate [Albuterol Inhaler] 1 puff IH Q4HR PRN #1 hfa.aer.ad 06/03/18 [Rx] Apixaban [Eliquis] 2.5 mg PO BID #30 tablet 06/03/18 [Rx] Furosemide [Lasix] 20 mg PO DAILY #30 tablet 06/03/18 [Rx] Metoprolol [Lopressor] 12.5 mg PO BID #30 tablet 06/03/18 [Rx] levoFLOXacin [Levaquin] 750 mg PO Q48H #4 tablet 06/03/18 [Rx] Allergies/Adverse Reactions: Allergy/AdvReac Type Severity Reaction Status Date / Time codeine Allergy Headache Verified 05/31/18 14:07 Penicillins Allergy See Verified 05/31/18 14:08 Comments Certification: Further, I certify that my clinical findings support that this patient is homebound (i.e. absences from home require considerable and taxing effort and are for medical reasons or latter day services or infrequently or short duration when for other reasons) because: Homebound Reason: Patient requires assistance of a person or device to safely leave home, Severity of cardiac or pulmonary status limits activity tolerance Attestation: My signature below is to certify that this patient is under my care and that I, or nurse practitioner, or a physician's engineer assistant working with me, has a fac e-to-face encounter with this patient.
[2018-06-03] MEDS: Levofloxacin 750 MG/150 ML 750 MG/150 ML BAG IVPB SCH (16:07)
[2018-06-03 16:31] VITALS: BP 100/66
[2018-06-03] MEDS: Nystatin POWDER 30 GM BOTTLE TP SCH (17:04)
== END 2018-06-03 18:50 | disposition home or self-care (01) | DRG 871 ==
LOC: EMEROOARM 13:41 → SUATTDRO 19:28 → 2ANU 19:28
PROVIDERS: ADMIT Internal Medicine; ATTEND Internal Medicine